=== PATIENT | female | born 1990 | race Caucasian/White ===

== ENCOUNTER → 2020-05-10 11:36 | Outpatient (BNVA) | payer OTHER, SELFPAY | PROVIDERS: PCP Internal Medicine; Visit Provider Advanced Practice Midwife | DX: Z30.09 Encounter for other general counseling and advice on contraception (principal) | CPT/HCPCS: 99202 ==

== ENCOUNTER 2021-08-28 11:29 | Outpatient (REF) | payer OTHER, SELFPAY | END 2021-08-28 11:30 | disposition home or self-care (01) | LOC: HO.10HDL 11:29 | PROVIDERS: Visit Provider Internal Medicine | DX: R30.0 Dysuria (principal); R35.0 Frequency of micturition; F43.12 Post-traumatic stress disorder, chronic; R87.619 Unspecified abnormal cytological findings in specimens from cervix uteri | CPT/HCPCS: 87086 ==

== ENCOUNTER → 2021-09-21 09:02 | Outpatient (BNVA) | payer OTHER, SELFPAY | PROVIDERS: PCP Internal Medicine | DX: N39.0 Urinary tract infection, site not specified (principal) | CPT/HCPCS: 99202 ==

== ENCOUNTER 2021-10-24 14:03 | Outpatient (REF) | payer OTHER, SELFPAY ==
[2021-10-24 14:28] LABS: Appearance Urine CLEAR; Color Urine YELLOW; Glucose Urine UA NEG (NEG); Leukocyte Esterase Urine NEG (NEG); Nitrite Urine NEG (NEG); Specific Gravity - Urine 1.025 (1.005-1.025); Urine Blood TRACE (NEG); Urine Ketones NEG (NEG); Urine Protein NEG (NEG-TRACE)
[2021-10-24 14:34] LABS: Bacteria Urine 1+ /LPF; Squamous Epithelial Cell Urine 2+ /LPF
[2021-10-24 14:35] LABS: RBC Urine 0-2 /HPF (0); WBC Urine 0-2 /HPF (0-4)
== END 2021-10-24 14:04 | disposition home or self-care (01) ==
LOC: HO.LAB 14:03
PROVIDERS: PCP Internal Medicine
DX: N39.0 Urinary tract infection, site not specified (principal)
CPT/HCPCS: 81001; 87086

== ENCOUNTER → 2022-07-01 10:33 | Outpatient (BNVA) | payer OTHER, SELFPAY | PROVIDERS: PCP Internal Medicine; Visit Provider Nurse Practitioner Family | DX: Z13.89 Encounter for screening for other disorder (principal) ==

== ENCOUNTER 2023-01-13 11:37 | Outpatient (AMB) | payer OTHER, SELFPAY ==
--- NOTE | 2023-01-13 11:37 | MHC.OFFVIS ---
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: No Accompanied by: Unknown Allergies morphine Allergy (Severe, Verified 01/13/23 21:39) pain point of enter Sulfa (Sulfonamide Antibiotics) Allergy (Mild, Verified 01/13/23 21:39) rash Medication List - Last Reconciled 01/13/23 by KAIN Dexter ascorbic acid (vitamin C) 500 mg PO DAILY ciprofloxacin HCl 250 mg PO BID PRN desogestrel-ethinyl estradiol 0.15-0.03 mg (Apri) 1 tab PO QAM fluconazole (Diflucan) 200 mg PO DAILY 1 day hydroxyzine HCl 25 mg PO TID PRN methenamine hippurate 1 g PO DAILY valacyclovir 1,000 mg PO DAILY HPI HPI Comments History of Present Illness Details Mariel is a pleasant 32-year-old female patient of who was accompanied by her boyfriend at today's visit. She presents to the office today for follow-up of her recurrent urinary tract infections. When asked patient reports to be doing and feeling well. She denies having had any recent urinary tract infections or any UTI like symptoms. Patient reports utilizing Cipro 250 mg postcoital with good effect. Patient denies urinary issues at this time. When asked patient does report having issues with constipation in endorses to not be drinking enough water daily. She otherwise denies urinary urgency, urinary frequency, incontinence, nocturia, hematuria, dysuria, foul smelling urine, changes to urinary stream, flank pain, fever, and or chills. She is happy with her current voiding parameters. In office urinalysis results reviewed with the patient today. PVR 0 mL. PFSH Medical History Anemia Bartholin's duct cyst Frequent UTI Genital herpes Infection due to yeast Family History Maternal Grandmother Diabetes mellitus Father HTN (hypertension) Social History Alcohol intake: current Alcohol intake frequency: a few times a week Gender identity: Female Female Reproductive History Menstrual Age of Menarche: 14 Review of Systems Const All systems reviewed & are unremarkable except as noted in HPI and below Reports as per HPI Eyes Reports no additional complaints ENT Reports no additional complaints Card Reports no additional complaints Resp Reports no additional complaints GI Reports no additional complaints Reports as per HPI Musc Reports no additional complaints Neuro Reports no additional complaints Psych Reports no additional complaints Endo Reports no additional complaints Brandon/Lymph Reports no additional complaints Aller/Immun Reports no additional complaints Physical Exam Const General: cooperative, healthy appearing, comfortable, no acute distress, well developed, alert and awake Orientation/consciousness: patient oriented x3 Limitations: no limitations HEENT Head: Yes normal to inspection, Yes normocephalic and Yes atraumatic Ears: hearing grossly normal bilaterally Eyes General: appearance normal, both eyes and all related structures Neck Neck: Yes normal visual inspection and Yes trachea midline Chest Chest palpation & inspection: normal inspection of the chest Resp Effort & Inspection: normal respiratory effort and able to speak in complete sentences Cardio Rate: regular rate GI Inspection: Yes normal to inspection General: Yes no CVA tenderness Back/Spine/Pelvis Back: no CVA tenderness Skin General skin exam: no rashes or lesions noted Neuro General: patient oriented x3 Extrem General: Yes normal to inspection Psych Appearance: grossly normal and well kempt Mental Status: mental status grossly normal Speech and movement: Normal speech and movement present and Clear speech present Affect: normal affect Attitude: cooperative Thought process: Normal thought process present Thought content: Normal thought content present Insight: Good insight present (Psych) Judgement: Good judgement present (Psych) Office Procedures Post Void Residual Post Residual Void Post Void Residual (PVR): 0 27396-[id number] Void Residual by ultrasound Results AMB Urinalysis, Automated UA Leukoctes 0 Harpreet/uL Last Edit by Avidbots on 01/13/23 12:01 UA Nitrite Last Edit by RotaryViewronel on 01/13/23 12:01 UA Urobilinogen 0.2 mg/dL Last Edit by Avidbots on 01/13/23 12:01 UA Protein 0 mg/dL Last Edit by Avidbots on 01/13/23 12:01 UA pH 6.0 Last Edit by Avidbots on 01/13/23 12:01 UA Blood 10 Jerry/uL Last Edit by Safia Perez on 01/13/23 12:01 UA Specific [place] 1.020 Last Edit by Safia Lomasronel on 01/13/23 12:01 UA Ketone Negative Last Edit by Safia Lomasronel on 01/13/23 12:01 UA Bilirubin 0 mg/dL Last Edit by Alphonsekajal Cesiliaronel on 01/13/23 12:01 UA Glucose 0 mg/dL Last Edit by Alphonsekajal Cesiliaronel on 01/13/23 12:01 Results Reviewed Results Reviewed: Laboratory Last Values Urine pH (Auto) 6.0 01/13/23 11:41 Specific [place] (Auto) 1.020 01/13/23 11:41 Urine Protein (Auto) 0 mg/dL 01/13/23 11:41 Glucose (UA)(Auto) 0 mg/dL 01/13/23 11:41 Urine Ketones (Auto) Negative 01/13/23 11:41 Urine Blood (Auto) 10 Jerry/uL 01/13/23 11:41 Urine Bilirubin (Auto) 0 mg/dL 01/13/23 11:41 Urine Urobilinogen (Auto) 0.2 mg/dL 01/13/23 11:41 Leukocyte Esterase (Auto) 0 Harpreet/uL 01/13/23 11:41 Assessment & Plan Assessment & Plan (1) Infection due to yeast: Code(s): B37.9 - Candidiasis, unspecified (2) Frequent UTI: Code(s): N39.0 - Urinary tract infection, site not specified Plan In office urinalysis results reviewed with the patient today; as noted above. Continue Cipro 250 mg as prescribed postcoital. Patient denies any urinary issues or concerns at this time. Discussed at length UTI prevention Discussed UTI prevention with D mannose supplement, vitamin-C, increasing fluid intake, behavioral therapy with timed voiding, perineal hygiene and postcoital voiding, and management of constipation with stool softeners and increased fiber intake Follow-up in 1 year; with PVR; if not sooner with any issues, concerns, and or questions. Orders: Orders AMB Urinalysis Automated Today Z13.9 - Encounter for screening, unspecified AMB Post Void Residual by ultrasound Today N39.0 - Urinary tract infection, site not specified Medications: New fluconazole (Diflucan) 200 mg PO DAILY 1 day 1 tab 3RF Coding Level of Care Code Est Pt Level 4 (48772) Diagnoses Infection due to yeast B37.9 Frequent UTI N39.0 CPT Codes Post Residual Void - PVR CPT Code: 84356-[id number] Void Residual by ultrasound ([id number])
== END 2023-01-13 12:17 | disposition home or self-care (01) ==
PROVIDERS: PCP Internal Medicine; Visit Provider Nurse Practitioner Family
DX: B37.9 Candidiasis, unspecified (principal); N39.0 Urinary tract infection, site not specified
CPT/HCPCS: 99214

== ENCOUNTER → 2023-01-13 11:37 | Outpatient (BNVA) | payer OTHER, SELFPAY | PROVIDERS: PCP Internal Medicine; Visit Provider Nurse Practitioner Family | DX: N39.0 Urinary tract infection, site not specified (principal); B37.9 Candidiasis, unspecified | CPT/HCPCS: 51798; 99212 ==

== ENCOUNTER 2023-01-23 14:41 | Outpatient (REF) | payer OTHER, SELFPAY ==
[2023-01-23 15:03] LABS: MANUAL DIFF FLAG NO
[2023-01-23 15:29] LABS: Basophils Percent Auto 0.3 % (0-2); Eosinophils Absolute Auto 0.2 X10*3/uL (0.0-0.4); Eosinophils Percent Auto 2.9 % (0-4); Hemoglobin 13.4 g/dl (12.0-16.0); Imm Gran Abs Auto 0.02 X10*3/uL (0.00-0.03); Imm Gran Pct Auto 0.3 % (0.0-0.4); Lymphocytes Absolute Auto 2.4 X10*3/uL (1.2-4.9); Lymphocytes Percent Auto 36.4 % (20-40); Mean Corpuscular HGB Conc 32.7 g/dl (31.0-35.0); Mean Corpuscular Hemoglobin 28.9 pg (27.0-33.0); Mean Corpuscular Volume 88.4 fL (80.0-98.0); Mean Platelet Volume 9.4 fL (9.4-12.3); Monocytes Absolute Auto 0.8 X10*3/uL (0.1-1.2); Neutrophils Absolute Auto 3.1 x10*3/uL (2.0-8.3); Neutrophils Percent Auto 48.1 % (45-73); Platelet Count 271 X10*3/uL (160-400); Red Blood Count 4.64 X10*6/uL (4.20-5.50); White Blood Count 6.5 X10*3/uL (4.8-10.8)
[2023-01-23 16:25] LABS: Ferritin 49 ng/mL (10-122)
[2023-01-23 16:31] LABS: Vitamin B12 374 pg/mL (200-900)
== END 2023-01-23 14:42 | disposition home or self-care (01) ==
LOC: HO.LAB 14:41
PROVIDERS: PCP Internal Medicine; Visit Provider Internal Medicine
DX: K92.1 Melena (principal); R10.13 Epigastric pain; R11.0 Nausea; R42 Dizziness and giddiness
CPT/HCPCS: 36415; 82607; 82728; 85025

== ENCOUNTER 2023-12-15 11:40 | Outpatient (REF) | payer OTHER, SELFPAY ==
[2023-12-15 13:25] LABS: MANUAL DIFF FLAG NO
[2023-12-15 13:30] LABS: Basophils Percent Auto 0.2 % (0-2); Eosinophils Absolute Auto 0.4 X10*3/uL (0.0-0.4); Eosinophils Percent Auto 7.9 % (0-4); Hematocrit 38.8 % (37.0-47.0); Hemoglobin 13.1 g/dl (12.0-16.0); Imm Gran Abs Auto 0.01 X10*3/uL (0.00-0.03); Imm Gran Pct Auto 0.2 % (0.0-0.4); Lymphocytes Absolute Auto 1.8 X10*3/uL (1.2-4.9); Lymphocytes Percent Auto 34.5 % (20-40); Mean Corpuscular HGB Conc 33.8 g/dl (31.0-35.0); Mean Corpuscular Hemoglobin 29.5 pg (27.0-33.0); Mean Corpuscular Volume 87.4 fL (80.0-98.0); Mean Platelet Volume 9.7 fL (9.4-12.3); Monocytes Absolute Auto 0.6 X10*3/uL (0.1-1.2); Monocytes Percent Auto 10.9 % (2-11); Neutrophils Absolute Auto 2.4 x10*3/uL (2.0-8.3); Neutrophils Percent Auto 46.3 % (45-73); Platelet Count 235 X10*3/uL (160-400); Red Blood Count 4.44 X10*6/uL (4.20-5.50); Red Cell Distribution Width 12.2 % (11.0-16.0); White Blood Count 5.2 X10*3/uL (4.8-10.8)
[2023-12-15 14:02] LABS: Thyroid Stimulating Hormone 2.23 uIU/mL (0.32-4.0)
== END 2023-12-15 11:41 | disposition home or self-care (01) ==
LOC: HO.10HDL 11:40
PROVIDERS: Visit Provider Internal Medicine
DX: Z00.00 Encounter for general adult medical examination without abnormal findings (principal); D50.9 Iron deficiency anemia, unspecified; F32.5 Major depressive disorder, single episode, in full remission; F41.8 Other specified anxiety disorders; F43.12 Post-traumatic stress disorder, chronic; R87.619 Unspecified abnormal cytological findings in specimens from cervix uteri
CPT/HCPCS: 36415; 84443; 85025

== ENCOUNTER 2024-09-30 12:39 | Outpatient (REF) | payer OTHER, SELFPAY ==
--- NOTE | ~2024-09-30 | XR_ITS ---
CLINICAL HISTORY: Pain 3 views left knee Comparison: None Findings: No fractures, subluxations or dislocations. Joint intervals are preserved. No osteochondral lesions or loose bodies. Normal patellar alignment. No suprapatellar joint effusion.No prepatellar soft tissue swelling. Normal bone mineralization and soft tissues. No unusual radiopaque foreign body. Impression: 1. Normal left knee. This document has been electronically signed by: Doug Mohan MD on 10/01/2024 12:38:46
--- OUTSIDE RECORDS SUMMARY | 2024-09-30 15:07 | XMS_ITS | Clinical Summary ---
Author Organization [facility] Address [address] [id number] Care Team Providers Care Conduit Helper Name Role Phone Unavailable Primary Care Provider Unavailabl e Social History Tobacco Use Types Packs/Day Years Used Date Smoking Tobacco: Never Assessed Comments Unknown Sex and Gender Information Value Date Recorded Sex Assigned at Not on file Legal Sex Female 4:31 AM EST Gender Identity Not on file Sexual Orientation Not on file Plan of Treatment Not on file
--- OUTSIDE RECORDS SUMMARY | 2024-09-30 15:07 | XMS_ITS | Patient Health Record ---
Author Organization [facility] Billing Info Address [address] [place] [address] [address] [id number] Care Team Providers Care Pipe Stem Aligner Name Role Phone JENNIFER WALLS [phone] Allergies Allergen (clinical drug ingredient) Drug/Non Drug Allergy documented on EMR Reaction Allergy Type Onset Date Status LATEX rash/hives Drug Allergy Active Sulfa rash/hives Drug Allergy Active Penicillin anaphylaxis Drug Allergy Acti ve Reason For Referral No Information Medications Medication SIG (Take, Route, Frequency, Duration) Notes Start Date End Date Status Lidocaine HCl 1 % 1 application as needed Externally Twice a day for 5 day(s) 06/18/2021 Active Valtrex 1 GM 1 tablet Orally BID for 15 day(s) 06/30/2021 Active Valacyclovir HCl 1 GM TAKE 1 TABLET BY MOUTH TWICE A DAY FOR 15 DAYS Active Lidocaine 5 % 1 application as needed Externally Three times a day prn pain for 30 day(s) 06/18/2021 Active AZO Cranberry 250-30 MG as directed Orally Not-Takin g + DHA Activ e Oxycodone HCl 5 MG 1 tablet as needed Orally every 4 hrs for 5 day(s) 06/18/2021 Active Diflucan 150 MG 1 tablet Orally once to be taken 11/10, then again 4 days later for 5 day(s) 11/09/2020 Not-Taking Hydrocodone-Acetaminop hen 5-325 MG 1 tablet as needed Orally every 4 hours for 5 day(s) 11/09/2020 Not-Taking Cefdinir 300 MG as directed Orally Active Apri 0.15-30 MG-MCG 1 tablet Orally Once a day for 28 day(s) Active Tylenol 325 MG 1 tablet as needed Orally every 4 hrs 1000mg BID Not-Taking Motrin 800mg BID Not-Taking Levofloxacin 750 MG 1 tablet Orally Once a day for 10 day(s) Not-Taking Diflucan 150 MG 1 tablet Orally for 10 day(s) Not-Taking Social History Tobacco Use: Social History Observation Description Date Details (start date - stop date) Never Smoker NA - NA Tobacco Status: Question Answer Notes Patient is a never smoker Problems Problem Type SNOMED Code ICD Code Onset Dates Problem Status W/U Status Risk Notes Problem [id number] Bartholin's gland cyst (N75.0) Active confirmed Plan Of Treatment No Information Insurance Providers Payer Name Payer Address Payer Phone Subscriber Number Group Number Insured Name Patient Relationship to Insured Coverage Start Date Coverage End Date [facility] [address] [address] [place], [place] [id number] Mariel Morton Self - patient is the insured 1 Medical (General) History Medical History History ICD Code Bartholin's cyst's HR HPV Surgical History Surgery Date(Month/Year) Batholin's abcess 2016 Batholin's abcess x2 2020
--- OUTSIDE RECORDS SUMMARY | 2024-09-30 15:07 | XMS_ITS | Clinical Summary ---
Author Organization [address] [facility] Address [address] [place] [address] Phone Care Team Providers Care Senior Controls Analyst Name Role Phone Physician, Pcp Unknown Primary Care Provider Sherri vailable Allergies No known active allergies Encounters Date Type Department Care Team Description 08/17/2024 Telephone Orthopedic [facility] [address] [phone] Ruslan Campos DPM 07/26/2024 10:45 AM EST Office Visit Orthopedic [facility] [address] [phone] Ruslan Campos DPM Pain in toes of both feet (Primary Dx); Ingrown left big toenail; Ingrown right big toenail from Last 3 Months Social History Tobacco Use Types Packs/Day Years Used Date Smoking Tobacco: Never Assessed Comments Unknown Sex and Gender Information Value Date Recorded Sex Assigned at Not on file Legal Sex Female 3:01 PM EST Gender Identity Not on file Sexual Orientation Not on file Plan of Treatment Health Maintenance Due Date Last Done Comments DTaP,Tdap,and Td Vaccines (1 - Tdap) 2010 Hepatitis B Vaccines (1 of 3 - 19+ 3-dose series) 2010 Cervical Cancer Screening: Pap Smear 2012 Depression Screening 05/22/2022 HIV Screening 05/22/2022 Hepatitis C Screening 05/22/2022 Social Influencers of Health Screening 05/22/2022 COVID-19 Vaccine ( season) 2024 08/28/2021, 06/28/2021, 06/02/2021, Additional history exists Influenza Vaccine (Season Ended) 2025 06/08/2021 HIB Vaccines Aged Out No longer eligi ble based on patient's age to complete this topic HPV Vaccines Aged Out No longer eligi ble based on patient's age to complete this topic Hepatitis A Vaccines Aged Out No long er eligible based on patient's age to complete this topic IPV Vaccines Aged Out No longer eligi ble based on patient's age to complete this topic MMR Vaccines Aged Out No longer eligi ble based on patient's age to complete this topic Meningococcal ACWY Vaccine Aged Out N o longer eligible based on patient's age to complete this topic Meningococcal B Vaccine Aged Out No l onger eligible based on patient's age to complete this topic Pneumococcal Vaccine: Pediatrics (0 to 5 Years) and At-Risk Patients (6 to 64 Years) Aged Out No longer eligible based on patient's age to complete this topic RSV Immunization Patients Under 20 months Aged Out No longer eligible based on patient's age to complete this topic Varicella Vaccines Aged Out No longer eligible based on patient's age to complete this topic Insurance MEDICAID - [place] Care Teams Senior Controls Analyst Relationship Specialty Start Date End Date Physician, Pcp Unknown PCP - General 07/26/24
--- OUTSIDE RECORDS SUMMARY | 2024-09-30 15:07 | XMS_ITS | Data Portability ---
Author Organization [place] - [facility], [facility] Address [address] [place] [address] Care Team Providers [facility] Nurse Practitioner Name Role Phone CLARKE VARGAS Primary Care Provider [phone] Assessment Encounter Date Assessment Date Assessment LastModified by Organization Details LastModified Time 07/18/2017 07/18/2017 bartholin cyst left: acute I and D done after explanation of options: observation and soaks. Word Catheter. Pt has formal affair tonight and is hosting 75 people. She needs to be as comfortable as possible. Will return in one week after soaking in Epsom salt. Menses now. Script for percocet 325/5 and cephalexin 500 mg bid for five days escripted to pharmacy Pt in between insurances. Will discuss payment reduction after submitted and pt feeling better. [email or web address] Not available 07/20/2017 05:44:50 07/18/2017 07/18/2017 left bartholin cyst Not available 07/18/2017 11:25:32 Plan of Treatment Reminders Order Date Submit Date Provider Last Modified By Organization Details Last Modified Time Details Appointments None recorded. Lab None recorded. Referral None recorded. Procedures None recorded. Surgeries None recorded. Imaging None recorded. Medication Orders Apri 0.15 mg-0.03 mg tablet 2017 018 INTERFACE [id number], [address] [place], [address], 8 09:53:15 cephalexin 500 mg capsule 2017 018 [email or web address] [id number], [address] [place], [address], 8 09:31:49 Percocet 5 mg-325 mg tablet 2017 018 [id number], [address] [place] [address], [address], 8 09:31:54 Macrobid 100 mg capsule [id number], [address] [place] [address], [address], 8 09:31:52 Patient TargetsNo targets recorded. Patient Instructions Encounter Date Encounter Id Patient Instructions Last Modified By Organization Details Last Modified Time 07/18/2017 [id number] Pt will soak, avoid exercise and IC until rechecked on next appointment. erlinda Not available 07/20/2017 05:45:12 This patient presents to the office today for a problem as noted above. The patient voices understanding of the issues discussed, and the options to help resolve her symptoms. All questions have been answered. erlinda Not available 07/20/2017 05:44:14 07/18/[id number] [facility] [email or web address] Not available 07/18/2017 11:25:54 07/29/2017 [id number] learning about control: combination pills [email or web address] Not available 07/29/2017 09:53:13 Reason for Referral None Reported. Results Created Date Observation Date Name Description Value Unit Range Abnormal Flag Note LastModifiedBy Organization Detail LastModifiedTime 01/30/2001/30/2017 bacte rial vagin osis + vagin itis panel , vagin al trichomonas vaginalis DNA Negati ve negati ve Not Available [facility] [address] [place], [address] 01/30/2017 17:09:46 01/30/2001/30/2017 bacte rial vagin osis + vagin itis panel , vagin al gardnerella vaginalis DNA Positi ve negati ve abnormal Not Available [facility] [address] [place], [address] 01/30/2017 17:09:46 01/30/20 17 01/30/2017 bacte rial vagin osis + vagin itis panel , vagin al lyubov species DNA Negati ve negati ve Not Available [facility] [address] [place], [place], 01/30/2017 17:09:46 01/30/20 17 01/30/2017 urina lysis , compl ete color YELLOW yellow Not Available [facility] [address] [place], [place], 01/30/2017 17:09:46 01/30/20 17 01/30/2017 urina lysis , compl ete appearance CLEAR clear Not Available [facility] [address] [place], [place], 01/30/2017 17:09:46 01/30/20 17 01/30/2017 urina lysis , compl ete specific gravity 1.007 1.001- 1.035 Not Available [facility] [address] [place], [place], 01/30/2017 17:09:46 01/30/20 17 01/30/2017 urina lysis , compl ete pH 7.0 5.0-8. 0 Not Available [facility] [address] [place], [place], 01/30/2017 17:09:46 01/30/20 17 01/30/2017 urina lysis , compl ete leukocyte esterase 3+ negati ve abnormal Not Available [facility] [address] [place], [place], 01/30/2017 17:09:46 01/30/20 17 01/30/2017 urina lysis , compl ete nitrite NEGATI VE negati ve Not Available [facility] [address] [place], [place], 01/30/2017 17:09:46 01/30/20 17 01/30/2017 urina lysis , compl ete protein NEGATI VE negati ve Not Available [facility] [address] [place], [place], 01/30/2017 17:09:46 01/30/20 17 01/30/2017 urina lysis , compl ete glucose NEGATI VE negati ve Not Available [facility] [address] [place], [place], 01/30/2017 17:09:46 01/30/20 17 01/30/2017 urina lysis , compl ete ketone NEGATI VE negati ve Not Available [facility] [address] [place], 01/30/2017 17:09:46 01/30/20 17 01/30/2017 urina lysis , compl ete bilirubin NEGATI VE negati ve Not Available [facility] [address] [place], [place], 01/30/2017 17:09:46 01/30/20 17 01/30/2017 urina lysis , compl ete WBC 0-5 /hpf < or = 5 Not Available [facility] [address] [place], [place], 01/30/2017 17:09:46 01/30/20 17 01/30/2017 urina lysis , compl ete RBC NONE SEEN /hpf < or = 2 Not Available [facility] [address] [place], [place], 01/30/2017 17:09:46 01/30/20 17 01/30/2017 urina lysis , compl ete bacteria NONE SEEN /hpf none seen Not Available [facility] [address] [place], 01/30/2017 17:09:46 01/30/20 17 01/30/2017 urina lysis , compl ete squamous epithelial cells 0-5 /hpf < or = 5 Not Available [facility] [address] [place], [place], 01/30/2017 17:09:46 01/30/20 17 01/30/2017 urina lysis , compl ete hyaline casts NONE SEEN /lpf none seen Not Available [facility] [address] [place], 01/30/2017 17:09:46 01/30/20 17 01/30/2017 urina lysis , compl ete occult blood NEGATI VE negati ve Not Available [facility] [address] [place], [address] 01/30/2017 17:09:46 01/30/20 17 01/31/2017 cultu re, urine source Clean Catch Not Available [facility] [address] [place], [address] 01/31/2017 08:34:13 01/30/20 17 01/31/2017 cultu re, urine culture Multi ple bacte rial morph otype s 1000 colon ies/m L prese nt. No furth er ident ifica tion will be perfo rmed. Not Available [facility] [address] [place] [address], [address] 01/31/2017 08:34:13 01/30/20 17 01/31/2017 cultu re, urine status FINAL 01/31 Not Available [address], [address] 01/31/2017 08:34:13 01/30/20 17 01/30/2017 CT + NG DNA, PCR, unspe cifie d speci men source Cervic al Not Available [facility] [address] [place] [address], [address] 01/31/2017 08:34:13 01/30/20 17 01/30/2017 CT + NG DNA, PCR, unspe cifie d speci men chlamydia by DNA Negati ve negati ve Not Available [address], [address] 01/31/2017 08:34:13 01/30/20 17 01/30/2017 CT + NG DNA, PCR, unspe cifie d speci men GC by DNA Negati ve negati ve Not FDA appro mercedes for GC/Ch lamyd ia in femal e urine speci mens. Test valid ated by CT for detec ting GC/Ch lamyd ia from this sourc e. Not Available [facility] [address] [place] [address], [address] 01/31/2017 08:34:13 06/03/20 17 06/04/2017 urina lysis , compl ete color YELLOW yellow Not Available [facility] [address] [place] [address], [address] 06/06/2017 07:52:53 06/03/20 17 06/04/2017 urina lysis , compl ete appearance CLEAR clear Not Available [facility] [address] [place] [address], [address] 06/06/2017 07:52:53 06/03/20 17 06/04/2017 urina lysis , compl ete specific gravity 1.024 1.001- 1.035 Not Available [facility] [address] [place], [address] 06/06/2017 07:52:53 06/03/20 17 06/04/2017 urina lysis , compl ete pH 6.5 5.0-8. 0 Not Available [facility] [address] [place], [address] 06/06/2017 07:52:53 06/03/20 17 06/04/2017 urina lysis , compl ete leukocyte esterase 2+ negati ve abnormal Not Available [facility] [address] [place], [address] 06/06/2017 07:52:53 06/03/20 17 06/04/2017 urina lysis , compl ete nitrite NEGATI VE negati ve Not Available [facility] [address] [place], [address] 06/06/2017 07:52:53 06/03/20 17 06/04/2017 urina lysis , compl ete protein NEGATI VE negati ve Not Available [facility] [address] [place], [address] 06/06/2017 07:52:53 06/03/20 17 06/04/2017 urina lysis , compl ete glucose NEGATI VE negati ve Not Available [facility] [address] [place], [address] 06/06/2017 07:52:53 06/03/20 17 06/04/2017 urina lysis , compl ete ketone TRACE negati ve abnormal Not Available [facility] [address] [place], [place], 06/06/2017 07:52:53 06/03/20 17 06/04/2017 urina lysis , compl ete bilirubin NEGATI VE negati ve Not Available [facility] [address] [place], [place], 06/06/2017 07:52:53 06/03/20 17 06/04/2017 urina lysis , compl ete WBC 20-40 /hpf < or = 5 abnormal Not Available [facility] [address] [place], [address] 06/06/2017 07:52:53 06/03/20 17 06/04/2017 urina lysis , compl ete RBC NONE SEEN /hpf < or = 2 Not Available [facility] [address] [place], [address] 06/06/2017 07:52:53 06/03/20 17 06/04/2017 urina lysis , compl ete bacteria FEW /hpf none seen abnormal Not Available [facility] [address] [place], [facility] 06/06/2017 07:52:53 06/03/20 17 06/04/2017 urina lysis , compl ete squamous epithelial cells 0-5 /hpf < or = 5 Not Available [facility] [address] [place], [facility] 06/06/2017 07:52:53 06/03/20 17 06/04/2017 urina lysis , compl ete hyaline casts NONE SEEN /lpf none seen Not Available [facility] [address] [place], [facility] 06/06/2017 07:52:53 06/03/20 17 06/04/2017 urina lysis , compl ete occult blood NEGATI VE negati ve Not Available [facility] [address] [place], [facility] 06/06/2017 07:52:53 06/03/20 17 06/06/2017 cultu re, urine source Clean Catch Not Available [facility] [address] [place], [facility] 06/06/2017 07:52:54 06/03/20 17 06/06/2017 cultu re, urine special requests 2 Not Available [facility] [address] [place], [address] 06/06/2017 07:52:54 06/03/20 17 06/06/2017 cultu re, urine culture abnormal E.col i 10,00 0 col/m L. Lacto bacil rimma speci es 10,00 0 col/m L. Lacto bacil li colon ize the femal e genit al tract and are usual ly consi dered conta minbud ts when found in urine cultu res irres pecti ve of colon y count . Not Available [facility] [address] [place], [address] 06/06/2017 07:52:54 06/03/20 17 06/06/2017 cultu re, urine status FINAL 06/06 Not Available [facility] [address] [place], [address] 06/06/2017 07:52:54 06/03/20 17 06/06/2017 antib iotic sensi tivit y, isola te organism E.col i 10,00 0 col/m L. Not Available [facility] [address] [place], [address] 06/06/2017 07:52:54 06/03/20 17 06/06/2017 antib iotic sensi tivit y, isola te method Suscep tibili ty Not Available [facility] [address] [place], [address] 06/06/2017 07:52:54 06/03/20 17 06/06/2017 antib iotic sensi tivit y, isola te amikacin S Not Available [facility] [address] [place], [address] 06/06/2017 07:52:54 06/03/20 17 06/06/2017 antib iotic sensi tivit y, isola te ampicillin S Not Available [facility] [address] [place], [address] 06/06/2017 07:52:54 06/03/20 17 06/06/2017 antib iotic sensi tivit y, isola te cefazolin S Not Available [facility] [address] [place], [address] 06/06/2017 07:52:54 06/03/20 17 06/06/2017 antib iotic sensi tivit y, isola te cefepime S Not Available [facility] [address] [place], [address] 06/06/2017 07:52:54 06/03/20 17 06/06/2017 antib iotic sensi tivit y, isola te cefoxitin S Not Available [facility] [address] [place], [address] 06/06/2017 07:52:54 06/03/20 17 06/06/2017 antib iotic sensi tivit y, isola te ceftazidime S Not Available [facility] [address] [place], [address] 06/06/2017 07:52:54 06/03/20 17 06/06/2017 antib iotic sensi tivit y, isola te ceftriaxone S Not Available [facility] [address] [place], [address] 06/06/2017 07:52:54 06/03/20 17 06/06/2017 antib iotic sensi tivit y, isola te ciprofloxaci n S Not Available [facility] [address] [place], [address] 06/06/2017 07:52:54 06/03/20 17 06/06/2017 antib iotic sensi tivit y, isola te ertapenem S Not Available [facility] [address] [place], [address] 06/06/2017 07:52:54 06/03/2006/06/2017 antib iotic sensi tivit y, isola te gentamicin S Not Available [facility] [address] [place], [address] 06/06/2017 07:52:54 06/03/2006/06/2017 antib iotic sensi tivit y, isola te levofloxacin S Not Available [facility] [address] [place], [address] 06/06/2017 07:52:54 06/03/20 17 06/06/2017 antib iotic sensi tivit y, isola te meropenem S Not Available [facility] [address] [place], [address] 06/06/2017 07:52:54 06/03/20 17 06/06/2017 antib iotic sensi tivit y, isola te nitrofuranto in S Not Available [facility] [address] [place], [address] 06/06/2017 07:52:54 06/03/2006/06/2017 antib iotic sensi tivit y, isola te piperacillin /tazobactam S Not Available [facility] [address] [place], [address] 06/06/2017 07:52:54 06/03/20 17 06/06/2017 antib iotic sensi tivit y, isola te tetracycline S Not Available [facility] [address] [place], [address] 06/06/2017 07:52:54 06/03/20 17 06/06/2017 antib iotic sensi tivit y, isola te tobramycin S Not Available [facility] [address] [place], [facility] 06/06/2017 07:52:54 06/03/20 17 06/06/2017 antib iotic sensi tivit y, isola te trimeth/sulf a S Not Available [facility] [address] [place], [facility] 06/06/2017 07:52:54 06/03/20 17 06/06/2017 antib iotic sensi tivit y, isola te ampicillin/s ulbactam S Not Available [facility] [address] [place] [address] 06/06/2017 07:52:54 Result Notes None recorded. 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 May need Word catheter in future. JUSTIN PÉREZ MD 175 [facility], [address] [place] [address], [address], [facility] 8 05:40:22 Uses oral contracep tion 9551630 Active 2017 ALKA AVELAR MD 175 [facility], [address] [place] [address], [address], [facility] 8 09:52:26 Rheumatoi d arthritis 09934772 Active Dr. 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 Procedures Surgical History Date Name Laterality Status Provider Name and Address Organization Details Recorded Time 07/24/2016 Date of Last Pap Smear completed Clarisse Ng [facility] 07/17/2017 10:14:54 05/04/2015 [id number] completed ALKA AVELAR MD 175 [facility], [address] [place] [address], [address], [facility] 05/04/2015 10:35:17 05/04/2015 [id number] completed ALKA AVELAR MD 175 [facility], [address] [place] [address], [address], [facility] 05/04/2015 10:35:17 05/04/2015 [id number] completed ALKA AVELAR MD 175 [facility], [address] [place] [address], [address], [facility] 05/04/2015 10:35:17 05/04/2015 [id number] completed ALKA AVELAR MD 175 [facility], [address] [place] [address], [address], [facility] 05/04/2015 10:35:17 05/04/2015 [id number] completed ALKA AVELAR MD 175 [facility], [address] [place] [address], [address], [facility] 05/04/2015 10:35:17 05/04/2015 [id number] A completed ALKA AVELAR MD [address] [place] [address], [address] Floor, [place], [address], [place] [facility] 05/04/2015 10:35:17 Imaging Results None recorded. Procedure Notes None recorded. Medical Equipment None Reported. Allergies Allergen ID Allergen Name Allergen Category Reaction Reaction Severity Criticality Documentation Date Start Date Code Code System Note Provider Name and Address Organization Details Recorded Time 034262 Substance with sulfonami de structure and antibacte rial mechanism of action (substanc e) medicatio n Not available Not available Not available 11/22/20142013 35189 8003 SNOMED Not Available [facility] 5 18:00:30 Medications Name Sig Start Date Stop Date Status Note LastModified by Organization Details LastModified Time Apri 0.15 mg-0.03 mg tablet TAKE 1 TABLET BY MOUTH EVERY DAY active Not Available Not Available No t Available Macrobid 100 mg capsule Take 1 capsule every 12 hours by oral route for 5 days. 07/29 completed Not Available Not Available Not Available Metrogel Vaginal 0.75 % (37.5 mg/5 gram) Insert 1 applicato rful every day by vaginal route for 5 days. 02/10 completed Not Available Not Available Not Available cephalexin 500 mg capsule Take one capsule twice a day for five days. 07/29 completed Not Available Not Available Not Available ergocalcife rol (vitamin D2) 1,250 mcg (50,000 unit) capsule active Not Available Not Available Not Available Percocet 5 mg-325 mg tablet Take one tablet every six hours prn postop pain. 07/29 completed Not Available Not Available Not Available 1.5/30 (28) 1.5 mg-30 mcg (21)/75 mg (7) tablet Take 1 tablet every day by oral route. active Not Available Not Available No t Available cyclobenzap rine 7.5 mg tablet 01/29 completed Not Available Not Available Not Available lidocaine 5 % topical ointment APPLY TO AFFECTED AREA(S) BY TOPICAL ROUTE 1-4 TIMES DAILY NEEDED 01/29 completed Not Available Not Available Not Available Vitals Date Recorded Body height Body mass index (BMI) Body weight Systolic blood pressure Diastolic blood pressure Provider Name and Address Organization Details Last Updated DateTime 01/29/2017 165.1 cm 20.6 kg/m2 76565.45 g 110 mm[Hg] 72 mm[Hg] Mansi Parham [facility] 7 10:53:10 Date Recorded Body height Systolic blood pressure Diastolic blood pressure Provider Name and Address Organization Details Last Updated DateTime 02/10/2017 165.1 cm 110 mm[Hg] 64 mm[Hg] Elicia Grant [facility] 02/10/2017 12:13:33 Date Recorded Body height Body height Systolic blood pressure Diastolic blood pressure Systolic blood pressure Diastolic blood pressure Provider Name and Address Organization Details Last Updated DateTime 8 165.1 cm 165.1 cm 112 mm[Hg] 70 mm[Hg] 112 mm[Hg] 70 mm[Hg] Batool Tucker [facility] 8 12:25:53 Date Recorded Body height Systolic blood pressure Diastolic blood pressure Provider Name and Address Organization Details Last Updated DateTime 07/29/2017 165.1 cm 118 mm[Hg] 62 mm[Hg] Elicia Grant [facility] 07/29/2017 09:32:53 Social History Question Answer Notes LastModified by Organizat ion Details LastModified Time Tobacco Smoking Status [facility] 10:07:27 What Is Your Level Of Alcohol Consumption? Occasional Information not available 01/29/2017 Drug Use? No Information no t available 01/29/2017 Do You Feel Safe At Home? Yes Information not available 01/29/2017 What Was The Date Of Your Most Recent Tobacco Screening? 02/10/2017 Information n ot available 01/13/2019 How Much Tobacco Do You Smoke? No [email or web address] Information not available 05/04/2015 Sex: Unknown Functional Status None recorded. Mental Status None recorded. Family History Relationship Description Onset Age of this Age Resolved Age Notes LastModified by Organization Details LastModified Time Father Coronary arterioscler osis [email or web address] Not available 2014 10:07:27 Unspecified Relation Malignant tumor of breast Matern al Great Aunt [email or web address] Not available 05/04/2015 10:07:27 Notes:no family hx ovarian o r colon cancer Medical History Condition Response Arthritis Y Gynecological History Statement/Question Response HPV Vaccine Y Current Control Method Oral Contra ceptives Date of Last Pap Smear 07/24/2016 Current Control Method BCPs Obstetrics History GPAL:G 0 P 0 0 0 0 Type Value Living 0 Total 0 Past Encounters Encounter ID Performer Location Encounter Start Date Encounter Closed Date Diagnosis/Indication Diagnosis SNOMED-CT Code Diagnosis ICD10 Code Diagnosis Note [id number] [facility] [address] [place] [address] 12/30/2013 00:00:00 [id number] [facility] [address] [place] [address] 09/15/2014 00:00:00 [id number] ALKA AVELAR MD [facility] [address] [facility] [address] 05/04/2015 09:49:27 05/04/2015 11:06:00 Gynecologic examination 56608956 Z01.450 [id number] CRISTELA GALLARDO APRN [facility] [address] [place] [address] 07/24/2016 10:55:15 07/29/2016 11:52:21 Gynecologic examination 86815963 Z01.411 Z01.419 Contraception care 24637 5005 Z30.40 [id number] ALKA AVELAR MD [facility] [address] [address] 01/10/2017 11:10:21 01/10/2017 11:55:05 Swelling 27079216 R60.9 left labial edema and erythema consistent with cellulitis discussed with patient advised hot baths with Epsoms salts topical lidocaine ointment Keflex return next week if not improved [id number] MARITZA OAKES MD [facility] [address] [facility] [place] [address] 01/29/2017 10:24:55 01/30/2017 10:08:15 Acute urinary tract infection 766572789 N39.0 UR&M/C&S sent Rx Macrobid Vaginitis 43391382 N76.0 Discussed vaginitis with patient. GC/Chlamyd ia done with consent. BD Affirm done today. Will wait for culture results to return for treatment. The patient was advised to call the office if symptoms worsen or do not improve. The patient verbalized an understand ing of all instructio ns. All questions answered. [id number] ALKA AVELAR MD [address] [address] 02/10/2017 11:49:03 02/10/2017 12:59:38 Swelling 22107411 R60.9 left labial edema and erythema consistent with cellulitis discussed with patient advised hot baths with Epsoms salts finish course of antibiotic s [id number] CRISTELA GALLARDO APRN [place] [address] 07/18/2017 10:22:39 07/18/2017 11:28:09 [id number] JUSTIN PÉREZ MD [address] [address] 07/18/2017 11:10:53 07/22/2017 11:05:48 Cyst of left Bartholin's gland duct 1338117912 0449087 N75.0 [id number] ALKA AVELAR MD [address] [address] 07/29/2017 09:12:16 07/29/2017 11:16:07 Cyst of left Bartholin's gland duct 7031624810 6468213 N75.0 resolving Bartholin' s gland cyst I&D see prn Uses oral contraception 8031689 Z30.41 prescripti on renewed Health Concerns Section Related Observation LastModified by Organization Detai ls LastModified Time None Recorded Concern Status LastModified by Organization Details LastModified Time None Recorded Advance Directives Directive None Recorded Payers Encounter Date Sequence Insurance Name Policy Number Policy Adler Covered Member ID Adler Member ID Guarantor Name 01/29/2017 1 [employer] [id number] Mariel Morton [id number] Mariel Morton 02/10/2017 1 [employer] [id number] Mariel Morton [id number] Mariel Morton 07/18/2017 1 [employer] [id number] Mariel Morton [id number] Mariel Morton 07/18/2017 1 [employer] [id number] Mariel Morton [id number] Mariel Morton 07/29/2017 1 [employer] [id number] Mariel Morton [id number] Mariel Morton 07/29/2017 1 VAL [facility] Mariel Morton [id number] Mariel Morton Notes Date Note Type Note Provider Name and Address Organization Details Recorded Time 01/29/2017 text/html Problem visit: P t recently seen for left labial cellulitis which has resolved at this point. Now hurts iwth urination. denies frequency, urgency, hematuri? a . Also with vaginal discharge, itching, feels different . Had unprotected sex and wants culture done. MARITZA OAKES MD [address] [facility], [address] [place] [address], [phone], [facility] 01/29/2017 17:54:44 02/10/2017 text/html here for followu p for labial cyst had issues in December 2016 with left labial cellulitis, treated with antibiotics symptoms resolved then seen for vaginitis and treated for BV 3 days ago noted labial swelling again - called on-call MD - given cephalexin and did sitz baths with Epsoms salts - it burst in the tub feels much better but came in for followup has history of Behcets disease diagnosed along with rheumatoid arthritis sexually active, does use condoms no change in soap or hygiene products states she does not wear tight fitting clothing ALKA AVELAR MD [address] [facility], [address] [place] [address], [phone], [facility] 02/10/2017 12:59:19 07/18/2017 text/html painful left vaginal bump CRISTELA GALLARDO APRN [address] [facility], [address] [place], [phone], [facility] 07/18/2017 11:26:18 07/18/2017 text/html I was called by Cristela to see this patient who she found had an acute bartholin cyst. 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 She had noted left painful swelling of her vulva that did not respond to soaks with Epsom salt. JUSTIN PÉREZ MD [address] [facility], [address], [place], [phone], [facility] 07/20/2017 05:46:03 07/29/2017 text/html had I&D of Bartholins cyst on 07-18-17 here for followup has been doing Sitz baths with Epsoms salts feels much better took Cephalexin ALKA AVELAR MD [address] [facility], [address], [place], [phone], [facility] 07/29/2017 09:54:09 OBGyn Episode No OBEpisode recorded.
== END 2024-09-30 12:40 | disposition home or self-care (01) ==
LOC: HO.XRAY 12:39
PROVIDERS: PCP Internal Medicine; Visit Provider Internal Medicine
DX: M25.562 Pain in left knee (principal)
CPT/HCPCS: 73560

== ENCOUNTER → 2024-09-30 12:50 | Outpatient (BNV) | payer OTHER, SELFPAY | PROVIDERS: PCP Internal Medicine; Visit Provider Radiology Diagnostic Radiology | DX: M25.562 Pain in left knee (principal) | CPT/HCPCS: 73560 ==

== ENCOUNTER 2024-12-16 12:37 | Outpatient (REF) | payer OTHER, SELFPAY ==
[2024-12-16 13:11] LABS: MANUAL DIFF FLAG NO
[2024-12-16 13:21] LABS: Basophils Percent Auto 0.4 % (0-2); Eosinophils Absolute Auto 0.3 X10*3/uL (0.0-0.4); Eosinophils Percent Auto 5.5 % (0-4); Hematocrit 36.6 % (37.0-47.0); Hemoglobin 11.9 g/dl (12.0-16.0); Imm Gran Abs Auto 0.01 X10*3/uL (0.00-0.03); Imm Gran Pct Auto 0.2 % (0.0-0.4); Lymphocytes Absolute Auto 1.9 X10*3/uL (1.2-4.9); Lymphocytes Percent Auto 35.5 % (20-40); Mean Corpuscular HGB Conc 32.5 g/dl (31.0-35.0); Mean Corpuscular Hemoglobin 28.8 pg (27.0-33.0); Mean Corpuscular Volume 88.6 fL (80.0-98.0); Monocytes Absolute Auto 0.6 X10*3/uL (0.1-1.2); Monocytes Percent Auto 11.8 % (2-11); Neutrophils Absolute Auto 2.5 x10*3/uL (2.0-8.3); Neutrophils Percent Auto 46.6 % (45-73); Platelet Count 221 X10*3/uL (160-400); Red Blood Count 4.13 X10*6/uL (4.20-5.50); Red Cell Distribution Width 12.6 % (11.0-16.0); White Blood Count 5.4 X10*3/uL (4.8-10.8)
--- OUTSIDE RECORDS SUMMARY | 2024-12-16 14:58 | XMS_ITS | Data Portability ---
Author Organization [place] - [facility], [facility] Address [address] [place] [address] Care Team Providers Care Inspector Technician Name Role Phone LUIS ANGEL LEE Primary Care Provider [phone] Assessment No assessment recorded. Plan of Treatment Reminders Order Date Submit Date Provider Last Modified By Organization Details Last Modified Time Details Appointments None recorded . Lab None recorded . Referral physical therapis t referral - ian great toe synoviti s + sesamoid itis; ian chronic ankle instabil ity- ROM, stretchi ng, strength ening, modaliti es PRN 2023 024 [email or web address] [facility] (Aleksandr Chun), [address], [place], [address], 4 09:38:17 Procedures None recorded . Surgeries None recorded . Imaging XR, knee, 3 view - 3v L knee. room 1 2024 025 [email or web address] [facility], [address], [address], [place], [address], 5 12:49:42 XR, hip + pelvis, bilatera l, 3 or 4 view - rm 201, new eval bilat hip pain 2023 024 [email or web address] [facility], [address], [address], [place], [address], 4 12:30:13 XR, foot, 3 or more view - room 101 bilat foot wb 2023 024 [email or web address] [facility], [address], [facility] [address], [address], 4 15:42:23 Medication Orders diclofen ac 1 % topical gel 2023 024 [email or web address] [facility] #[id number], [address] [place], [address], 11:35:04 Patient TargetsNo targets recorded. Patient InstructionsNo instructions recorded. Reason for Referral Physical Therapist Referral for Chronic ankle instability ian great toe synovitis + sesamoiditis; ian chronic ankle instability- ROM, stretching, strengthenin ian great toe synovitis + sesamoiditis; ian chronic ankle instability- ROM, stretching, strengthening, modalities PRN Referring Physician: Wen Rodriguez, Orthopedic Surgery, Encounter Date: 01/08/2024 Results Created Date Observation Date Name Description Value Unit Range Abnormal Flag Note LastModifiedBy Organization Detail LastModifiedTime 11/27/19 24 11/27/2023 XR, foot, 3 or more view [email or web address] ?Encry pted=s hAaTro YD8dLq bEUv6g %2BXZw aYqtaq 0bqfl% 2Fg9IQ a4ajBk vP9nXo QUaueC m3YtLR FvZlgJ JJ8mAn HZtai3 2u2809 AC0Kua 3iAV6L eUC8mr 84%3D INTERFACE [facility] [address] [facility] [address], [place], [address], 11/27/2023 08:40:40 11/27/19 24 11/27/2023 XR, foot, 3 or more view [email or web address] ?Encry pted=s hAaTro YD8dLq bEUv6g %2BXZw aYqtaq 0bqfl% 2Fg9IQ a4ajBk vP9nXo QUaueC m3YtLR FvZl JJ8mAn HZtai3 2u9984 AC0Kua 3iAV6L eUC8mr 84%3D INTERFACE [facility] [address], [place], [address], 11/27/2023 08:40:42 12/18/19 24 12/18/2023 XR, hip + pelvi s, bilat eral, 3 or 4 view [email or web address] ?Encry pted=s hAaTro YD8dLq bEUv6g %2BXZw aYqtaq 0bqfl% 2Fg9IQ a4ajBk vP9nXo QUaueC m3YtLR FvZlgJ JJ8mAn HZtai3 3b5277 AC0Kpa niHWaT eUC8mr 84%3D INTERFACE [facility] [address], [place], [address], 12/18/2023 13:26:00 12/18/19 24 12/18/2023 XR, hip + pelvi s, bilat eral, 3 or 4 view [email or web address] ?Encry pted=s hAaTro YD8dLq bEUv6g %2BXZw aYqtaq 0bqfl% 2Fg9IQ a4ajBk vP9nXo QUaueC m3YtLR FvZlgJ JJ8mAn HZtai3 6y4716 AC0Kpa niHWaT eUC8mr 84%3D INTERFACE [facility] [address], [place], [address], 12/18/2023 13:26:03 11/23/19 25 11/22/2024 XR, knee, 3 view [email or web address] ?Encry pted=s hAaTro YD8dLq bEUv6g %2BXZw aYqtaq 0bqfl% 2Fg9IQ a4ajBk vP9nXo QUaueC m3YtLR FvZlgJ JJ8mAn HZtai3 7a0116 AC0Kla 3WHUqK lKiQtr MwF INTERFACE [facility] [address] [facility] [address], [place], [address], 11/22/2024 10:43:44 11/23/19 25 11/22/2024 XR, knee, 3 view [email or web address] ?Encry pted=s hAaTro YD8dLq bEUv6g %2BXZw aYqtaq 0bqfl% 2Fg9IQ a4ajBk vP9nXo QUaueC m3YtLR FvZlgJ JJ8mAn HZtai3 8a2949 AC0Kla 3WHUqK lKiQtr MwF INTERFACE [facility] [address] [facility] [address], [place], [address], 11/22/2024 10:43:46 Result Notes Documentation Provider Name and Address Organization Details Recorded Time Xr, Foot, 3 Or More View : [email or web address] Encrypted=fpLtEhmCB0jEdyX Uv6g%0ZIMtuCgblu6eaiv%2Fg 3CEl7zrKutK7lTnCOxqhRo0Dj OKTpEzuGJA9oIiPSeup36l074 8PG5Pmi2nRU7ApYJ9zp28%3D Not Available [facility] 11/27/2023 08:4 0:40 Xr, Foot, 3 Or More View : [email or web address] Encrypted=sjQkAvaAF7vWnyW Uv6g%9MTXgkLiauz2nbcu%2Fg 4NHg4vaPklU5eJpDCawwKi4Ev KOIsZqdKEH4qIeEMyty04z794 7WP5Ezg5tYY5DmMX6bs55%3D Not Available [facility] 11/27/2023 08:4 0:42 Xr, Hip + Pelvis, Bilateral, 3 Or 4 View : [email or web address] Encrypted=zwWgPbbBI0lTsyB Uv6g%8ZSQbxUyhne7dxnj%2Fg 3SDn7hhElvP4lBcAZaeyOv0Rv BPPoPhwKWQ7vRoWBqno09i174 9SP5FrcxrKNxYsVC3wv94%3D Not Available [facility] 12/18/2023 13:2 6:01 Xr, Hip + Pelvis, Bilateral, 3 Or 4 View : [email or web address] Encrypted=jbUrVwsAJ7oCjlA Uv6g%2MMEcxElzuc0puxx%2Fg 4KZc1euTkpJ2dVmLYeijGq1Ko STStPzrDCI3zLoPLxcj12a300 0UP3MgvrcIXhZvPM4on64%3D Not Available [facility] 12/18/2023 13:2 6:03 Xr, Knee, 3 View : [email or web address] Encrypted=cmZcRswLL0lVizK Uv6g%3YYFkgMjxyi8qxnb%2Fg 0YIf1mvEpiC4xYbEEaudIr8Eh DEFkExeVDB9zTvESeqn66s892 8DT7Izt3MMAwPfKpQyhJaE Not Available [facility] 11/22/2024 10:43: 44 Xr, Knee, 3 View : [email or web address] Encrypted=vvIsAyyXE0kXzqQ Uv6g%5VJGuqMeqou1xqgv%2Fg 3TDn9zmEhaI9nEwMLhipOv0Aq ASFcIviMLM4mIaTLnek78w750 8GQ0Oek2KDSfIbAmDihAfW Not Available [facility] 11/22/2024 10:43: 46 Problems Name Problem SNOMED Code Status Onset Date Resolution Date Notes Provider Name and Address Organization Details Recorded Time Pain of hip region 70428982 Active 2023 EMELY laureano [place] - [facility] 13:13:08 Pain of hip region 34546271 Active 2023 EMELY CHAPIN [facility] 4 13:13:25 Bilateral trochanteri c bursitis 4519223468944 9109 Active 2023 EMELY CHAPIN [facility] 4 14:05:57 Bilateral foot joint pain 2235456217741 9109 Active 2023 EMELY CHAPIN [facility] 4 14:09:50 Problem Notes None recorded. Procedures Surgical History Date Name Laterality Status Provider Name and Address Organization Details Recorded Time 4 Hip Kenalog 1cc Injection, Bilateral completed Samuel Mcneil PA-C [address] [facility] [address], [place], [address], [facility] 12/24/2023 07:53:20 Imaging Results None recorded. Procedure Notes None recorded. Medical Equipment None Reported. Allergies Allergen ID Allergen Name Allergen Category Reaction Reaction Severity Criticality Documentation Date Start Date Code Code System Note Provider Name and Address Organization Details Recorded Time 380924 morphine medicatio n chest pain severe Not available 11/27/20232019 7052 RxNorm Mirian Conway [facility] 5 10:28:52 158949 Substance with sulfonami de structure and antibacte rial mechanism of action (substanc e) medicatio n hair loss moderate Not available 11/27/20232005 49904 8003 SNOMED Mirian Conway [facility] 5 10:28:52 487006 latex environme nt,medica tion itching moderate Not available 11/27/2023 28873 91 RxNorm KIERSTEN HINES [facility] 4 09:19:34 661839 Product containin g penicilli n (product) medicatio n Not available Not available Not available 12/18/2023 19343 8001 SNOMED EMELY CHAPIN [facility] 4 13:09:56 137936 amoxicill in medicatio n Not available Not available Not available 01/08/2024 723 RxNonaman laureano [place] - [facility] 4 10:45:02 Medications Name Sig Start Date Stop Date Status Note LastModified by Organization Details LastModified Time Apri 0.15 mg-0.03 mg tablet Take 1 tablet every day by oral route. 11/22 completed Not Available Not Available Not Available cetirizine 10 mg tablet TAKE 1 TABLET BY MOUTH EVERY DAY 11/22 completed Not Available Not Available Not Available azithromyci n 250 mg tablet TAKE 2 TABLETS BY MOUTH TODAY, THEN TAKE 1 TABLET DAILY FOR 4 DAYS DIRECTED 11/22 completed Not Available Not Available Not Available fluconazole 150 mg tablet TAKE 1 TABLET BY MOUTH 11/22 completed Not Available Not Available Not Available valacyclovi r 1 gram tablet Take 1 tablet every other day by oral route. 11/22 completed Not Available Not Available Not Available fluconazole 200 mg tablet TAKE 1 TABLET BY MOUTH ONCE FOR 1 DAY 11/22 completed Not Available Not Available Not Available sumatriptan 50 mg tablet TAKE 1 TABLET AT LEAST 2 HOURS BETWEEN DOSES NEEDED BY MOUTH ONCE A DAY 11/22 completed Not Available Not Available Not Available topiramate 25 mg tablet TAKE 1 TABLET BY MOUTH EVERY DAY FOR 90 DAYS 11/22 completed Not Available Not Available Not Available hydroxyzine HCl 50 mg tablet TAKE 1 TABLET BY MOUTH TWICE A DAY FOR 15 DAYS active Not Available Not Available No t Available omeprazole 40 mg capsule,del ayed release TAKE 1 CAPSULE BY MOUTH EVERY DAY active Not Available Not Available No t Available propranolol 10 mg tablet TAKE 1 TABLET BY MOUTH TWICE A DAY 11/22 completed Not Available Not Available Not Available lorazepam 0.5 mg tablet TAKE 1 TABLET BY MOUTH EVERY DAY NEEDED FOR PANIC/ANX IETY 11/22 completed Not Available Not Available Not Available benzonatate 100 mg capsule TAKE 1 CAPSULE BY MOUTH THREE TIMES A DAY 11/22 completed Not Available Not Available Not Available clotrimazol e-betametha sone 1 %-0.05 % topical cream PLEASE SEE ATTACHED FOR DETAILED DIRECTION S 11/22 completed Not Available Not Available Not Available escitalopra m 5 mg tablet TAKE 1 TABLET BY MOUTH EVERY DAY 06/02 /2025 completed Not Available Not Available Not Available sumatriptan 11/22 completed Not Available Not Available Not Available hydroxyzine HCl active Not Available Not Available Not Available valacyclovi r 11/22 completed Not Available Not Available Not Available Apri 11/22 completed Not Available Not Available Not Available diclofenac 1 % topical gel PLEASE SEE ATTACHED FOR DETAILED DIRECTION S active Not Available Not Available No t Available Vitals Date Recorded Body height Body mass index (BMI) Body weight Provider Name and Address Organization Details Last Updated DateTime 11/22/2024 165.1 cm 22.3 kg/m2 86331.38 g Mirian Conway [facility] 11/22/2024 10:32:49 Date Recorded Body height Body mass index (BMI) Body weight Provider Name and Address Organization Details Last Updated DateTime 11/27/2023 165.1 cm 22.5 kg/m2 06888.97 g KIERSTEN HINES [facility] 11/27/2023 08:31:17 Date Recorded Body height Body mass index (BMI) Body weight Provider Name and Address Organization Details Last Updated DateTime 12/18/2023 165.1 cm 22.3 kg/m2 28592.38 g EMELY CHAPIN [facility] 12/18/2023 13:09:34 Date Recorded Body height Body mass index (BMI) Body weight Provider Name and Address Organization Details Last Updated DateTime 01/08/2024 165.1 cm 22.3 kg/m2 14549.38 g ROBERTO WILHELM [facility] 01/08/2024 10:44:52 Social History Question Answer Notes LastModified by Cylande ion Details LastModified Time Tobacco Smoking Status [facility] 11/22/2024 10:29:05 How Many Years Have You Smoked Tobacco? 0 Information not available 11/22/2024 Sex: Unknown Functional Status Question Answer Note LastModified by Cylande ion Details LastModified Time How many times per week do you consume alcohol? 1-2 times per week Information not available 11/22/2024 Do you use any illicit or recreational drugs? No Information not available 11/22/2024 Do you or have you ever used any other forms of tobacco or nicotine? No Information not available 11/22/2024 Do you or have you ever used e-cigarettes or vape? Never used electronic cigarettes Information not available 11/22/2024 Mental Status None recorded. Family History Nothing Reported. Medical History Condition Response Coronary Artery Disease N Anxiety/Depression Y Emphysema N COPD N Pacemaker N Vascular Disease N Heart Trouble N Gastrointestinal Disease N Autoimmune disease N Orthotics Y Arthritis N Blood Clot N Acid Reflux (GERD) Y Cancer N Stroke N Circulation Problems N Rheumatoid Arthritis N Arrhythmia N Headaches Y Fibromyalgia N Allergies/Hayfever N Breathing or lung disorders N Nerve Disorders N Thyroid Problems N Kidney/Bladder Problems N Anemia Y Heart Attack (CT) N Cholesterol N Diabetes N Bleeding Disorder N Seizures/Epilepsy N AIDS/HIV N Congestive Heart Failure (CHF) N Asthma N Peripheral Vascular Disease N Sleep Apnea N Hepatitis N Heart Disease N Pulmonary Embolism N Hypertension N Osteoporosis N Gynecological HistoryNo gynecological history recorded. Obstetrics History GPAL:G 0 P 0 0 0 0 Past Encounters Encounter ID Performer Location Encounter Start Date Encounter Closed Date Diagnosis/Indication Diagnosis SNOMED-CT Code Diagnosis ICD10 Code Diagnosis Note [id number] [facility] [address] [place] [place] [address] 11/27/2023 08:25:58 12/18/2023 15:42:23 Foot pain 23073885 M79.673 Sesamoiditis 50758192 M2 5.80 [id number] Samuel Mcneil PA-C [facility] [address] [place] [address] 12/18/2023 12:57:17 01/14/2024 12:30:13 Pain of hip region 95329653 M25.551 M25.552 Trochanter ic bursitis of right hip 7104598624 36516 M70.61 Trochanter ic bursitis of left hip 1321300901 83769 M70.62 Bilateral plantar fasciitis 5022406577 2989570 M72.2 [id number] [facility] [address] [place] [address] 01/08/2024 10:41:17 01/27/2024 09:38:17 Bilateral foot joint pain 0994668936 1787965 M79.671 M79.672 Sesamoiditis 43378699 M2 5.80 Chronic an kle instability 423417737 M25.802 [id number] [facility] [place] [address] 11/22/2024 10:26:56 11/26/2024 12:49:42 Pain of left knee joint 5036551016 89289 M25.562 Pain of hip region 77554 002 M25.551 M25.552 Health Concerns Section Related Observation LastModified by Organization Detai ls LastModified Time None Recorded Concern Status LastModified by Organization Details LastModified Time None Recorded Advance Directives Directive None Recorded Payers Insurance Date Sequence Insurance Name Policy Number Policy Adler Covered Member ID Adler Member ID Guarantor Name 11/22/2024 1 [facility] (MEDICAID HMO) [id number] Mariel Morton [id number] Mariel Morton Notes Date Note Type Note Provider Name and Address Organization Details Recorded Time 11/27/2023 text/html I am seeing this patient under the supervision of Dr. Barker who was available but who did not see the patient.HPI: Patient is a 33-year-old female presenting to the office for evaluation of bilateral foot pain that began a while ago and she miss stepped and felt a shooting pain up the foot. Reports it started with her right foot, her left foot began bothering her after that as well. Localizes most of her pain to the plantar forefoot around the sesamoid region. Also reports sometimes she gets pain at the dorsal aspect of the foot and anterior aspect of the ankle. Reports some numbness and tingling at times. She is here today for orthopedic consultation. Of note, patient states she cannot take NSAIDs due to history of an ulcer.Past family, medical, social history and review of systems has been reviewed, updated and is located in the patient's chart.Examination: The patient is well appearing, alert and oriented x3 and in no acute distress. On inspection of the bilateral foot ankle, there is no edema, erythema, ecchymosis or deformity. Skin is intact, no open wounds. Patient is tender about bilateral sesamoid regions as well as the base of the first MTP joints of the right foot around the plantar plate region. She is also tender at the ATFL bilaterally as well as the anterior aspect of the bilateral ankles. Otherwise nontender about the foot and ankle. Range of motion is full and strength is intact. Neurovascularly intact distally. No gross instability. Calf is supple, nontender. Achilles tendon nontender, no palpable defect noted. Peripheral, vascular, lymphatic examination, skin, neurological, coordination, reflexes, sensation are within normal limits.X-rays ordered, obtained and reviewed independently today at [facility]: five-view x-rays of bilateral foot reveal no acute fractures or dislocations.Impressi on: bilateral sesamoiditis and mild ankle sprains with chronic ankle instability, possible right plantar plate injuryPlan: I discussed my findings and the situation with the patient. We discussed potential treatment options at this time. Patient would like to try a sesamoid pads, ankle braces and ankle exercises, and diclofenac gel. She was provided with scripts for these today. She will follow-up in 6 weeks for evaluation, no x-rays at that time. If she still having pain at that time we can consider other options including physical therapy and Villalta's stiff extension insert. Patient agrees with this plan. All questions were answered.The patient is ambulatory, but has weakness and/or instability of their extremity which requires stabilization from this semi-rigid/rigid orthosis to improve their function. Verbal and written instructions for the use and application of this item were given. Patient was instructed that should the brace result in increased pain, decreased sensation, increased swelling or an overall worsening of their medical condition, to please contact our office immediately.Speech recognition hat brim curler software was used to create portions of this document. An attempt at proofreading has been made to minimize errors. Please call for corrections. Wen Rodriguez PA-C [address] [facility] [address], [place], [address], [facility] - [facility] 11/27/2023 09:15:32 12/18/2023 text/html I am seeing the patient today under the supervision of Dr. Trevino who was available but who did not see the patient.History:This pleasant 33-year-old presents today for a new problem bilateral hip pain. Now for a number of years. She states she has limited range of motion. Had a history of torn labrum in her hips in the past. Rates her pain at 7 at times. Especially at night when lying on her sides. Pain is mostly laterally. Occasionally into her groin. She takes no medications for this as she is having history of ulcer. She also complains today of bilateral foot pain. Pain 8 foot pain is present with walking and when first getting up from a seated position or lying down.PMH/PSH/MEDS/ALL /FMH/SOC HX/ROS are reviewed in detail per my medical intake sheet.General Exam: Vital signs are as noted belowMental status: Alert and lucid. Normal insight, affect and grooming.[employer]: Gross motor coordination is intact. No spasticity or clonus noted.Extremities:Abdullahi ves are soft non tender, skin intact.Orthopedic Examination:Patient has a negative straight leg raise bilaterally.Right Hip: Tenderness over the greater trochanter otherwise near full range of motion. Negative impingement arc. Mild tenderness along the course of the IT bandLeft Hip: Tenderness over the greater trochanter otherwise near full range of motion. Negative impingement arc. Mild tenderness along the course of the IT bandFoot exam reveals tenderness to palpation about the medial and inferior aspect of the heels bilaterally. Tenderness along the plantar fascia bilaterally. Otherwise full range of motion of the foot and ankle without limitations.Full strength and sensation distally.X-rays: Radiographs 2 views were obtained and reviewed in the office bilateral hips reveal no arthritic changes. No evidence of AVN. No signs of cam or impingement lesions. No fractures.Assessment: Bilateral hip trochanteric bursitis with underlying history of labral pathology. Bilateral plantar fasciitisPLAN: In regards to the hips have discussed with her and recommended a course of physical therapy with ITB stretching and modalities. Discussed and recommended trochanteric bursal injections. After reviewing risks and benefits and obtained verbal consent each of the patient's hips was injected with 1 cc of Kenalog 40 mg/cc 4 cc Marcaine 1%. She tolerated the procedures well per postinjection precautions reviewed. Recommended rest today. Discussed with the specific surgery for this however further management and MRI could be obtained to further that the underlying labral pathology versus tendinitis of the medius gluteus Or gluteus minimus muscles.In regards to her feet will recommend wall she is in physical therapy to do stretching of plantar fascia with modalities. Discussed with her using a tennis ball or racquetball to roll her foot and structure plantar fascia before getting up the morning.[facility] speech recognition hat brim curler software was used to create portions of this document. An attempt at proofreading has been made to minimize errors. Please call for corrections. Samuel Mcneil PA-C [address], [place], [address], [facility] - [facility] 12/24/2023 07:54:09 01/08/2024 text/html I am seeing this patient under the supervision of Dr. Barker who was available but who did not see the patient.Clinical update: PatientIs here today for recheck. Reports the dancer's pads were not very helpful for her. Reports most of her pain is at the plantar aspect of the great toe IP joint bilaterally. She has continued dancing and her pain has persisted. Denies interval trauma. Physical exam, imaging review, impression, and plan for today's visit updated below.HPI: Patient is a 33-year-old female presenting to the office for evaluation of bilateral foot pain that began a while ago and she miss stepped and felt a shooting pain up the foot. Reports it started with her right foot, her left foot began bothering her after that as well. Localizes most of her pain to the plantar forefoot around the sesamoid region. Also reports sometimes she gets pain at the dorsal aspect of the foot and anterior aspect of the ankle. Reports some numbness and tingling at times. She is here today for orthopedic consultation. Of note, patient states she cannot take NSAIDs due to history of an ulcer.Past family, medical, social history and review of systems has been reviewed, updated and is located in the patient's chart.Examination: The patient is well appearing, alert and oriented x3 and in no acute distress. On inspection of the bilateral foot ankle, there is no edema, erythema, ecchymosis or deformity. Skin is intact, no open wounds. Patient is tender about bilateral sesamoid regions as well as the plantar aspect of the great toe IP joints bilaterally. She is also tender at the ATFL bilaterally as well as the anterior aspect of the bilateral ankles. Otherwise nontender about the foot and ankle. Range of motion is full and strength is intact. Neurovascularly intact distally. No gross instability. Calf is supple, nontender. Achilles tendon nontender, no palpable defect noted. Peripheral, vascular, lymphatic examination, skin, neurological, coordination, reflexes, sensation are within normal limits.X-rays ordered, obtained and reviewed independently today at [facility]: None indicated or performed today.Previous films: Five-view x-rays of bilateral foot reveal no acute fractures or dislocations.Impressi on: bilateral great toe synovitis and sesamoiditis, chronic bilateral ankle instabilityPlan: I discussed my findings and the situation with the patient. We discussed potential treatment options at this time. I recommended physical therapy and stiff insert with Villalta's extension. She was provided with scripts for these today. She will follow-up in 6 weeks for reevaluation, no x-rays needed at that time. If she sews pain at that time we can consider an MRI of bilateral feet to further evaluate the great toe pain and rule out ligamentous tear. Patient agrees with this plan. All questions were answered.The patient is ambulatory, but has weakness and/or instability of their extremity which requires stabilization from this semi-rigid/rigid orthosis to improve their function. Verbal and written instructions for the use and application of this item were given. Patient was instructed that should the brace result in increased pain, decreased sensation, increased swelling or an overall worsening of their medical condition, to please contact our office immediately.Speech recognition hat brim curler software was used to create portions of this document. An attempt at proofreading has been made to minimize errors. Please call for corrections. Wen Rodriguez PA-C [address] [place] [address] [address] [facility], [place], [address], [facility] - [facility] 01/08/2024 11:23:07 11/22/2024 text/html I am seeing the patient today under the supervision of Dr. Trevino who was available but who did not see the patient.History: This pleasant 34-year-old female presents today for a new problem of left knee pain. Pain is located anteriorly and somewhat posteriorly about the knee. Reports no injury. 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 She states when she dances and heels she has increased irritability. She reports no specific injury. Has been doing physical therapy for the past 6 weeks with mild improvement.PMH/PSH/M EDS/ALL/FMH/SOC HX/ROS are reviewed in detail per my medical intake sheet.General Exam: Vital signs are as noted belowMental status: Alert and lucid. Normal insight, affect and grooming.[employer]: Gross motor coordination is intact. No spasticity or clonus noted.Extremities:Abdullahi ves are soft non tender, skin intact.Orthopedic Examination:Patient has a negative straight leg raise bilaterally.Left Hip: No tenderness. Range of motion full. No referred pain in the knee.Right Knee: Patellar crepitance with active knee extension otherwise no tenderness to palpation. Full range of motion. No effusion, erythema warmth. No laxity.Left Knee: Mild lateral patellar tenderness. Mild crepitance on the patella with active knee extension. Full range of motion. No laxity. Negative Fatuma's. No effusion, erythema or warmth. Negative Wayne's test.Full strength and sensation distally.X-rays: Radiographs 3 views ordered obtained reviewed today in the office of the left knee reveal neutral alignment of the patella. Slight lateral tilt on the right side. Otherwise decent preservation of joint spaces.Assessment: Chondromalacia patella left kneePLAN: Discussed and [id number] knee sleeve. Discussed use of Voltaren gel as well as Tylenol and anti-inflammatories. Physical therapy. Follow-up with us as needed.[employer] speech recognition hat brim curler software was used to create portions of this document. An attempt at proofreading has been made to minimize errors. Please call for corrections. Samuel Mcneil PA-C [address] [place], [place] [id number], [place], [address], [facility] - [facility] 11/22/2024 12:40:43 OBGyn Episode No OBEpisode recorded.
== END 2024-12-16 12:38 | disposition home or self-care (01) ==
LOC: HO.10HDL 12:37
PROVIDERS: Visit Provider Internal Medicine
DX: Z00.00 Encounter for general adult medical examination without abnormal findings (principal); D50.9 Iron deficiency anemia, unspecified; F41.8 Other specified anxiety disorders; R51.9 Headache, unspecified
CPT/HCPCS: 36415; 85025